=== PATIENT | male | born 1995 | race Caucasian/White ===

== ENCOUNTER 2022-03-19 21:38 | Emergency (ER) | payer MEDICAID ==
[~2022-03-19] VITALS: Ht 172.7 cm; Wt 68.0 kg
[2022-03-20 01:29] LABS: BASOPHILS # (AUTO) 0.2 K/uL (0.0-0.2); BASOPHILS % (AUTO) 1.7 % (0.0-2.0); EOSINOPHILS % (AUTO) 0.7 % (0.0-6.0); HEMATOCRIT 44 % (39-51); HEMOGLOBIN 15.1 g/dL (13.5-17.5); LYMPHOCYTES # (AUTO) 2.8 K/uL (0.8-4.8); LYMPHOCYTES % (AUTO) 28.1 % (20.0-44.0); MEAN CORPUSCULAR HGB CONC 34 g/dl (31.0-36.0); MEAN CORPUSCULAR VOLUME 85 fL (80-96); MONOCYTES # (AUTO) 1.2 K/uL (0.1-1.30); MONOCYTES % (AUTO) 11.8 % (2.0-12.0); NEUTROPHILS # (AUTO) 5.7 K/uL (1.8-8.9); NEUTROPHILS % (AUTO) 57.7 % (43.0-81.0); PLATELET COUNT (AUTO) 382 K/uL (150-450); RED BLOOD CELL COUNT(AUTO) 5.21 MIL/uL (4.5-6.0); WHITE BLOOD COUNT (AUTO) 9.9 K/uL (4.3-11.0)
[2022-03-20 01:46] LABS: CALCIUM, SERUM 9.4 mg/dL (8.5-10.1); POTASSIUM 4.8 mmol/L (3.5-5.1)
[2022-03-20 01:48] LABS: BILIRUBIN,URINE NEGATIVE (NEGATIVE); COLOR,URINE YELLOW (YELLOW); LEUKOCYTE ESTERASE ,URINE NEGATIVE (NEGATIVE); NITRITE, URINE NEGATIVE (NEGATIVE); PROTEIN,URINE 1+ mg/dl (NEGATIVE); UGLUCOSE 3+ mg/dL (NEGATIVE); UROBILINOGEN,URINE 0.2 EU/dL (0.2)
[2022-03-20 02:11] LABS: BACTERIA,URINE Rare /HPF (None Seen); RBC,URINE 0-2 /HPF (0-2); SQUAMOUS EPITHELIAL CELL,UR Rare /HPF (None Seen)
[2022-03-20] MEDS: IV NS 0.9% 1,000 ML BAG IV ONE (02:23)
[2022-03-20] MEDS ORDERED: INSULIN REGULAR, HUMAN 100 UNIT/ML 10 ML VIAL ONE (02:24)
[2022-03-20] MEDS: INSULIN REGULAR, HUMAN 100 UNIT/ML 10 ML VIAL SQ ONE (02:32)
[2022-03-20 03:19] VITALS: BP 133/81
--- NOTE | 2022-03-20 03:19 | NUR ---
Patient discharged to home in stable condition. Written and verbal after care instructions given. Patient verbalizes understanding of instruction.
== END 2022-03-20 03:20 | disposition home or self-care (01) ==
LOC: ER 21:41
DX: B34.9 Viral infection, unspecified (principal); R73.9 Hyperglycemia, unspecified; Z85.6 Personal history of leukemia
CPT/HCPCS: 99284; 96360; 71045; 85025; 80048; 81001; 36415; 82962 ×2; 96372; J1815; J7030

== ENCOUNTER 2024-07-21 18:23 | Emergency (ER) | payer MEDICAID ==
[~2024-07-21] VITALS: Ht 172.7 cm; Wt 74.8 kg
[2024-07-21] MEDS ORDERED: IBUP-1953 PO (19:19)
[2024-07-21 19:53] VITALS: BP 123/74; TEMP 98.7; O2SAT 99
== END 2024-07-21 19:53 | disposition home or self-care (01) ==
LOC: ER 18:25
DX: G56.22 Lesion of ulnar nerve, left upper limb (principal); E11.9 Type 2 diabetes mellitus without complications
CPT/HCPCS: 82962-TC

== ENCOUNTER 2024-12-05 04:51 | Emergency (ER) | payer MEDICAID ==
[~2024-12-05] VITALS: Ht 170.2 cm; Wt 63.5 kg
[~2024-12-05 04:51] MED LIST: IBUP-1953 PO
[2024-12-05 07:40] VITALS: BP 131/81; TEMP 98.2; O2SAT 98
== END 2024-12-05 07:40 | disposition home or self-care (01) ==
LOC: ER 04:54
DX: S13.4XXA Sprain of ligaments of cervical spine, initial encounter (principal); E11.9 Type 2 diabetes mellitus without complications; V43.52XA Car driver injured in collision with other type car in traffic accident, initial encounter; Y93.89 Activity, other specified; Y92.410 Unspecified street and highway as the place of occurrence of the external cause; Y99.8 Other external cause status
CPT/HCPCS: 72125-TC